=== PATIENT | female | born 1985 | race Caucasian/White ===

== ENCOUNTER 2019-12-06 14:19 | Emergency (ER) | payer BC ==
[2019-12-06] MEDS ORDERED: Tetan/Diph/Pertus SYR(Tdap)* 0.5 ML SYR(BOOSTRIX) use SYR contains LATEX IM ONE (14:38)
--- NOTE | 2019-12-06 14:38 | ED ---
Laceration/Wound HPI - HPI Summary HPI Summary: 33-year-old right-hand dominant female with no significant past medical history presents to the emergency department today complaining of 7 out of 10 left first finger pain after cutting the distal tip of her left finger off with a hatchet approximately 30 minutes ago. Patient has full range of motion and is neurovascularly intact. Patient does not have a bleeding disorder and is not on blood thinners. Patient is in no acute distress. Patient otherwise feels well and denies fever, chest pain, abdominal pain, pain with urination, rash. Patient denies recent recreational drug use or alcohol use. Surgical history and family history is noncontributory. - History of Current Complaint Stated Complaint: LT 1ST FINGER LAC PER PT Time Seen by Provider: 12/06/19 14:28 Hx Obtained From: Patient Mechanism of Injury: Sharp/Blunt Trauma Onset/Duration: Sudden Onset Alleviating: Compression Onset Severity: Moderate Current Severity: Moderate Pain Intensity: 6 Pain Scale Used: 0-10 Numeric Associated Signs & Symptoms: Pain Related Hx: Dominant Hand (Right) - Allergy/Home Medications Allergies/Adverse Reactions: Allergies Allergy/AdvReac Type Severity Reaction Status Date / Time No Known Allergies Allergy Verified 12/06/19 14:26 PMH/Surg Hx/FS Hx/Imm Hx Infectious Disease History: No Infectious Disease History: Denies: Traveled Outside the [place] in Last 30 Days Review of Systems Constitutional: Negative Eyes: Negative ENT: Negative Cardiovascular: Negative Respiratory: Negative Gastrointestinal: Negative Genitourinary: Negative Musculoskeletal: Negative Skin: Negative Neurological/Mental Status: Negative Psychological: Normal All Other Systems Reviewed And Are Negative: Yes Physical Exam - Summary Physical Exam Summary: Patient is in no acute distress. Structural reveals open wound to the distal left index finger with involvement of the nailbed. Medial distal aspect of left index finger completely removed. Pulp of the distal phalanges of the left index finger is visible through the wound. Wound appears clean with no foreign bodies. Patient has range of motion and is neurovascularly intact. Triage Information Reviewed: Yes Vital Signs On Initial Exam: Initial Vitals Temp Pulse Resp BP Pulse Ox 97 F 40 19 87/54 99 12/06/19 14:21 12/06/19 14:21 12/06/19 14:21 12/06/19 14:21 12/06/19 14:21 Vital Signs Reviewed: Yes Appearance: Positive: Well-Appearing, No Pain Distress, Well-Nourished Skin: Positive: Warm, Skin Color Reflects Adequate Perfusion Eyes: Positive: EOMI, FIOR ENT: Positive: Hearing grossly normal Respiratory/Lung Sounds: Positive: Clear to Auscultation, Breath Sounds Present Cardiovascular: Positive: RRR, S1, S2 Abdomen Description: Positive: Nontender, Soft Bowel Sounds: Positive: Present Musculoskeletal: Positive: Strength/ROM Intact Neurological: Positive: Sensory/Motor Intact, Alert, Oriented to Person Place, Time, Facial Symmetry, Speech Normal Psychiatric: Positive: Normal, Affect/Mood Appropriate AVPU Assessment: Alert Procedures - Sedation Patient Received Moderate/Deep Sedation with Procedure: No Diagnostics - Vital Signs Vital Signs Temp Pulse Resp BP Pulse Ox 12/06/19 14:21 97 F 40 19 87/54 99 - Laboratory Lab Statement: Any lab studies that have been ordered have been reviewed, and results considered in the medical decision making process. Laceration Repair Course/Dx - Course Course Of Treatment: Patient was evaluated for laceration to left index finger. Vitals noted. Patient was in no acute distress. Patient's wound was irrigated with 200 cc of normal saline. A manual blood pressure cuff was applied to the patient's left forearm and inflated to approximately 200 mmHg. After tourniquet was applied open wound was covered using a layer of Dermabond skin glue. After glue dried and approximately 1 minute a pressure dressing was applied and the tourniquet was released. Patient tolerated procedure well. Minimal blood loss. Patient's tetanus immunization was updated during her stay. Patient discharged with outpatient follow-up. - Differential Dx Differental Diagnoses: Avulsion, Fracture, Laceration, Puncture Wound - Clinical Impression Provider Diagnoses: Laceration of left index finger Discharge ED - Sign-Out/Discharge Documenting (check all that apply): Patient Departure - Discharge Plan Condition: Stable Disposition: HOME Prescriptions: Cephalexin CAP* [Keflex CAP*] 500 mg PO QID #16 cap Patient Education Materials: Laceration (ED) Referrals: No Primary Care Phys,NOPCP [Primary Care Provider] - Additional Instructions: You were seen in the ER today because you cut the tip of your left finger. Please keep your dressing in place for 24 hours and then carefully remove and do daily dressing changes. Please keep this dressing intact and dry. Please take antibiotics Keflex 500 mg 4 times daily for 4 days to protect against infection. Please follow-up with your primary care provider or orthopedic doctor at home in 3-5 days. Please return to the emergency department immediately if you develop any new or worsening symptoms. - Billing Disposition and Condition Condition: STABLE Disposition: Home
[2019-12-06] MEDS ORDERED: Cephalexin CAP* 500 MG PO ONE (15:20)
[2019-12-06 15:39] VITALS: BP 109/62
== END 2019-12-06 15:33 | disposition home or self-care (01) ==
LOC: ED 14:19
DX: S61.211A Laceration without foreign body of left index finger without damage to nail, initial encounter (principal); Z23 Encounter for immunization; W27.8XXA Contact with other nonpowered hand tool, initial encounter; Y92.9 Unspecified place or not applicable
CPT/HCPCS: 90471; 90715; 99282; A9270-GY